=== PATIENT | female | born 1995 | race Caucasian/White ===

== ENCOUNTER 2024-09-20 16:35 | Inpatient (IN) | payer BC ==
[2024-09-20 17:20] LABS: BASOPHILS PERCENT AUTO 0.1 % (0.0-1.0); EOSINOPHILS PERCENT AUTO 0.2 % (0.0-6.0); HEMATOCRIT 40.2 % (37.0-47.0); HEMOGLOBIN 13.7 gm/dl (12.0-16.0); IMMATURE GRAN ABSOLUTE AUTO 0.06 K/mm3 (0.00-0.05); IMMATURE GRAN PERCENT AUTO 0.4 % (0.0-0.4); LYMPHOCYTES ABSOLUTE AUTO 2.7 K/mm3 (1.0-4.8); LYMPHOCYTES PERCENT AUTO 19.9 % (24.0-44.0); MEAN CORPUSCULAR HEMOGLOBIN 30.6 pg (28.0-32.0); MEAN CORPUSCULAR HGB CONC 34.1 g/dl (32.0-36.0); MEAN CORPUSCULAR VOLUME 89.9 fl (83.0-99.0); MEAN PLATELET VOLUME 10.7 fl (9.4-12.3); MONOCYTES ABSOLUTE AUTO 0.9 K/mm3 (0.0-0.8); MONOCYTES PERCENT AUTO 6.9 % (0.0-8.0); NEUTROPHILS ABSOLUTE AUTO 9.7 K/mm3 (1.8-7.7); NEUTROPHILS PERCENT AUTO 72.5 % (41.0-71.0); PLATELET COUNT,PLT 261 K/mm3 (150-400); RED BLOOD CELL COUNT 4.47 M/mm3 (4.10-5.30); WHITE BLOOD CELL COUNT,WBC 13.46 K/mm3 (3.9-11.3)
[2024-09-20 17:43] LABS: CREATININE 0.8 mg/dL (0.55-1.02); EST CRCL DRUG DOSING (CG) 91.21 mL/min; URIC ACID 3.6 mg/dL (2.6-6.0)
[2024-09-20 18:05] LABS: PROTEIN,URINE RANDOM < 6.0 mg/dL (0.0-11.8)
[2024-09-20] MEDS ORDERED: Calcium Carbonate 500 MG Tab.Chew PO PRN (18:15)
[2024-09-20] MEDS ORDERED: Nalbuphine 10 MG/1 ML Vial IVPUSH PRN (18:15)
[2024-09-20] MEDS ORDERED: Oxytocin/0.9 % Sodium Chloride 30 UNIT/500 ML BAG IV SCH ×2 (18:15)
[2024-09-20] MEDS ORDERED: Ondansetron 4 MG/2 ML SDV IVPUSH PRN (18:15)
[2024-09-20] MEDS ORDERED: Acetaminophen 325 MG Tab PO PRN (18:15)
[2024-09-20] MEDS ORDERED: Lidocaine 1% 50 ML MDV INJECT PRN (18:15)
[2024-09-20] MEDS: Misoprostol 25 MCG (1/4 of 100 MCG) Tab VAG ONE (18:54)
[2024-09-20] MEDS: Oxytocin/0.9 % Sodium Chloride 30 UNIT/500 ML BAG IV SCH (23:29)
[2024-09-20] MEDS: Lactated Ringers 1,000 ML IV SCH (23:29)
[2024-09-21] MEDS: Misoprostol 25 MCG (1/4 of 100 MCG) Tab VAG SCH (00:20)
[2024-09-21] MEDS ORDERED: diphenhydrAMINE 50 MG/ML SDV IVPUSH PRN (07:14)
[2024-09-21] MEDS ORDERED: ePHEDrine 50 MG/ML SDV IVPUSH PRN (07:14)
[2024-09-21] MEDS: fentaNYL 100 MCG/2 ML SDV EPIDUR PRN (07:20)
[2024-09-21] MEDS: Bupivacaine/fentaNYL/NS 100 ML Bag EPIDUR PRN (07:20)
[2024-09-21] MEDS ORDERED: Acetaminophen 325 MG Tab PO PRN (15:14)
[2024-09-21] MEDS: Ibuprofen 600 MG Tab PO SCH (15:15)
[2024-09-21] MEDS: Benzocaine/Menthol 20%-0.5% Spray 78 GM Cannister TOP PRN (16:40)
[2024-09-21] MEDS: Witch Hazel Medicated Pads 40/Jar TOP PRN (16:40)
[2024-09-22] MEDS: Ibuprofen 600 MG Tab PO SCH ×2 (04:58→22:00)
[2024-09-22] MEDS: Docusate Sodium 100 MG Cap PO PRN (09:52)
== END 2024-09-23 10:45 | disposition home or self-care (01) | DRG 560 ==
LOC: JD.OBCHECK 16:35 → JD.OB 18:17 → JD.OBCHECK 18:18 → OBSVTOIN 09-21 14:27 → JD.OB 09-21 14:28
PROVIDERS: ADMIT Obstetrics & Gynecology; ATTEND Obstetrics & Gynecology
PROC: 4A1HXCZ Monitoring of Products of Conception, Cardiac Rate, External Approach (ICD-10-PCS; principal; 2024-09-21)
PROC: 3E0R3BZ Introduction of Anesthetic Agent into Spinal Canal, Percutaneous Approach (ICD-10-PCS; principal; 2024-09-21)
PROC: 10907ZC Drainage of Amniotic Fluid, Therapeutic from Products of Conception, Via Natural or Artificial Opening (ICD-10-PCS; principal; 2024-09-21)
PROC: 0U7C7ZZ Dilation of Cervix, Via Natural or Artificial Opening (ICD-10-PCS; principal; 2024-09-21)
PROC: 10E0XZZ Delivery of Products of Conception, External Approach (ICD-10-PCS; principal; 2024-09-21)
PROC: 3E0P7VZ Introduction of Hormone into Female Reproductive, Via Natural or Artificial Opening (ICD-10-PCS; principal; 2024-09-21)
PROC: 0KQM0ZZ Repair Perineum Muscle, Open Approach (ICD-10-PCS; principal; 2024-09-21)
DX: O13.4 Gestational [pregnancy-induced] hypertension without significant proteinuria, complicating childbirth (principal); O70.1 Second degree perineal laceration during delivery; Z79.899 Other long term (current) drug therapy; Z3A.37 37 weeks gestation of pregnancy; Z37.0 Single live birth
CPT/HCPCS: 36415; 51702; 59025; 59409; 82565; 82570; 83615; 84156; 84450; 84460; 84520; 84550; 85025; 86592; 86850; 86900; 86901; A9270-GY; J3010; J3490; J7120; J7999